=== PATIENT | female | born 1990 | race Caucasian/White ===

== ENCOUNTER 2017-01-14 11:08 | Inpatient (IN) | payer OTHER ==
[2017-01-14] MEDS ORDERED: Dinoprostone* 10 MG VAG.SUPP VAGINAL ONE (12:31)
[2017-01-14 13:19] LABS: Hematocrit 36 % (35-47); Hemoglobin 11.9 g/dl (12.0-16.0); Mean Corpuscular HGB Conc 33 g/dl (31-36); Mean Corpuscular Hemoglobin 26 pg (27-31); Mean Corpuscular Volume 80 fL (80-97); Mean Platelet Volume 11 um3 (7.4-10.4); Red Blood Count 4.54 10^6/ul (4.0-5.4); Red Cell Distribution Width 15 % (10.5-15); White Blood Count 7.1 10^3/ul (3.5-10.8)
[2017-01-14 13:34] LABS: Albumin 3.3 g/dL (3.2-5.2); Calcium 9.4 mg/dL (8.6-10.3); EGFR African American 170.5 (>60); EGFR Non-African American 132.6 (>60); Globulin 3.3 g/dL (2-4); Total Bilirubin 0.4 mg/dL (0.2-1.0); Total Protein 6.6 g/dL (6.4-8.9); Uric Acid 4.1 mg/dL (2.3-6.6)
[2017-01-15] MEDS ORDERED: Zolpidem TAB* 5 MG PO ONE (02:16)
[2017-01-15] MEDS ORDERED: Dibucaine 1% 28.35 GM TUBE ONE (07:04)
[2017-01-15] MEDS ORDERED: Witch Hazel PAD* JAR ONE (07:05)
[2017-01-15] MEDS ORDERED: Dibucaine 1% 28.35 GM TUBE PR PRN (08:06)
[2017-01-15] MEDS ORDERED: Acetaminophen TAB* 325 MG PO PRN (08:06)
[2017-01-15] MEDS ORDERED: Witch Hazel PAD* JAR TOPICAL PRN (08:06)
[2017-01-15] MEDS: Ibuprofen TAB* 600 MG PO PRN (15:25)
[2017-01-15] MEDS: Docusate CAP* 100 MG PO SCH ×3 (15:25→21:13)
[2017-01-16] MEDS: Ibuprofen TAB* 600 MG PO PRN ×2 (09:05→20:54)
[2017-01-16] MEDS: Docusate CAP* 100 MG PO SCH ×3 (09:05→20:54)
[2017-01-16 09:29] LABS: Hematocrit 38 % (35-47); Hemoglobin 12.4 g/dl (12.0-16.0); Mean Corpuscular HGB Conc 33 g/dl (31-36); Mean Corpuscular Hemoglobin 26 pg (27-31); Mean Corpuscular Volume 81 fL (80-97); Mean Platelet Volume 10 um3 (7.4-10.4); Red Blood Count 4.72 10^6/ul (4.0-5.4); Red Cell Distribution Width 15 % (10.5-15); White Blood Count 13.9 10^3/ul (3.5-10.8)
[2017-01-16 09:43] LABS: Albumin 3.3 g/dL (3.2-5.2); Calcium 9.5 mg/dL (8.6-10.3); EGFR African American 148.5 (>60); EGFR Non-African American 115.5 (>60); Globulin 3.5 g/dL (2-4); Potassium 4.3 mmol/L (3.5-5.0); Total Bilirubin 0.4 mg/dL (0.2-1.0); Total Protein 6.8 g/dL (6.4-8.9)
[2017-01-16] MEDS: Ferrous Gluconate TAB* 324 MG TAB PO SCH ×2 (10:00→21:30)
[2017-01-17 06:40] LABS: Hematocrit 35 % (35-47); Hemoglobin 11.3 g/dl (12.0-16.0); Mean Corpuscular HGB Conc 33 g/dl (31-36); Mean Corpuscular Hemoglobin 26 pg (27-31); Mean Corpuscular Volume 80 fL (80-97); Mean Platelet Volume 10 um3 (7.4-10.4); Red Blood Count 4.31 10^6/ul (4.0-5.4); Red Cell Distribution Width 15 % (10.5-15); White Blood Count 11.8 10^3/ul (3.5-10.8)
[2017-01-17 06:46] LABS: Add Diff/Slide Review? Slide Review Added; Comments Flag Yes
[2017-01-17 06:59] LABS: BUN/Creatinine Ratio 24.1 (8-20); EGFR African American 174.2 (>60); EGFR Non-African American 135.4 (>60); Globulin 3.1 g/dL (2-4); Total Bilirubin 0.3 mg/dL (0.2-1.0); Total Protein 6.1 g/dL (6.4-8.9)
[2017-01-17 08:03] VITALS: BP 131/83
[2017-01-17] MEDS: Docusate CAP* 100 MG PO SCH (08:33)
[2017-01-17] MEDS: Ibuprofen TAB* 600 MG PO PRN (08:33)
== END 2017-01-17 12:40 | disposition home or self-care (01) | DRG 560 ==
LOC: MCHOBOUT 11:08 → MCHOB 12:03
PROVIDERS: ADMIT Nurse Practitioner; ATTEND Nurse Practitioner
PROC: 10E0XZZ Delivery of Products of Conception, External Approach (ICD-10-PCS; principal; 2017-01-15)
PROC: 3E0P3VZ Introduction of Hormone into Female Reproductive, Percutaneous Approach (ICD-10-PCS; 2017-01-15)
PROC: 0KQM0ZZ Repair Perineum Muscle, Open Approach (ICD-10-PCS; 2017-01-15)
DX: O26.62 Liver and biliary tract disorders in childbirth (principal); K83.1 Obstruction of bile duct; O70.1 Second degree perineal laceration during delivery; Z3A.36 36 weeks gestation of pregnancy; Z37.0 Single live birth
CPT/HCPCS: 36415; 80053; 81002; 82575; 84550; 85025; 86850; 86900; 86901; A9270-GY